=== PATIENT | female | born 1995 | race Caucasian/White ===

== ENCOUNTER 2019-08-05 12:30 | Emergency (ER) | payer BC, MEDICAID, OTHER ==
[2019-08-05] MEDS ORDERED: Acetaminophen/HYDROcodone 325-5 MG Tab PO ONE (13:59)
--- NOTE | 2019-08-05 14:01 | EDM.PDOC ---
ED HPI GENERAL MEDICAL PROBLEM - General Chief Complaint: Lower Extremity Injury/Pain Stated Complaint: [facility] Time Seen by Provider: 08/05/19 12:40 Source of Information: Reports: Patient, RN Notes Reviewed - History of Present Illness INITIAL COMMENTS - FREE TEXT/NARRATIVE: lady comes in with left knee pain. she slipped on ice a short time ago and states her left knee twisted causing her to fall. She states she felt a pop. She is having pain of the entire knee but more severe medial aspect. She is unable to bear weight. There is severe pain with motion. She denies other pain or injury from the fall. Left Knee Pain Score (Numeric/FACES): 10 - Related Data Allergies Allergy/AdvReac Type Severity Reaction Status Date / Time amoxicillin [From Augmentin] Allergy Hives Verified 08/05/19 12:36 clavulanic acid Allergy Hives Verified 08/05/19 12:36 [From Augmentin] cedex Allergy Cannot Uncoded 08/05/19 12:36 Remember Home Meds: Home Meds Acetaminophen/HYDROcodone [Hampton 325-5 MG] 1 tab PO Q6H PRN #10 tablet 08/05/19 [Rx] Past Medical History - Past Surgical History HEENT Surgical History: Reports: Oral Surgery, Tonsillectomy Social & Family History - Tobacco Use Smoking Status *Q: Never Smoker - Caffeine Use Caffeine Use: Reports: None - Recreational Drug Use Recreational Drug Use: No Review of Systems - Review of Systems Review Of Systems: See Below Constitutional: Reports: No Symptoms Mouth/Throat: Reports: No Symptoms Respiratory: Denies: Shortness of Breath Cardiovascular: Denies: Chest Pain GI/Abdominal: Denies: Abdominal Pain, Nausea, Vomiting Musculoskeletal: Reports: Joint Pain Skin: Reports: No Symptoms Neurological: Reports: No Symptoms ED EXAM, GENERAL - Physical Exam Exam: See Below General Appearance: Alert, Moderate Distress Ears: Normal External Exam Nose: Normal Inspection Throat/Mouth: Normal Inspection Head: Atraumatic Neck: Supple, Non-Tender Respiratory/Chest: No Respiratory Distress Extremities: Other (there is tenderness of the left knee medial aspect primarily and to a lesser extent anteriorly. Swelling visible. No abrasion visible. No joint effusion. Joint is stable. Severe pain with motion) Neurological: No Motor/Sensory Deficits Course - Vital Signs Last Recorded V/S: Last Vital Signs Temp 98.4 F 08/05/19 12:37 Pulse 87 08/05/19 12:37 Resp 13 08/05/19 12:37 BP 160/94 H 08/05/19 12:37 Pulse Ox 100 08/05/19 12:37 - Orders/Labs/Meds Orders: Active Orders 24 hr Category Date Time Status Knee 3V Lt [CR] Stat Exams 08/05/19 12:37 Taken Meds: Medications Discontinued Medications Generic Name Dose Route Start Last Admin Trade Name Freq PRN Reason Stop Dose Admin Hydrocodone Bitart/Acetaminophen 1 tab 08/05/19 13:59 08/05/19 14:14 Hampton 325-5 Mg PO 08/05/19 14:00 1 tab ONETIME ONE Administration - Re-Assessments/Exams Free Text/Narrative Re-Assessment/Exam: 08/05/19 14:00 no fracture 08/05/19 14:02. no fracture, no visible effusion on exam, severe pain with motion. Has a large leg, knee immobilizer is going to be difficult for her. Philip wrap that she has crutches at home, discharge instructions as documented Departure - Departure Time of Disposition: 14:02 Disposition: Home, Self-Care 01 Condition: Fair Clinical Impression: Fall, Knee sprain - Discharge Information Prescriptions: Acetaminophen/HYDROcodone [Hampton 325-5 MG] 1 tab PO Q6H PRN #10 tablet PRN Reason: Pain Instructions: Knee Sprain, Adult, [id number] Forms: ED Department Discharge, ED Return to Work/School Form Additional Instructions: Philip wrap left knee, ice packs, restand elevation as much as possible. Delroy or [place] 3 times daily her pain and inflammation, he may take Tylenol in between doses for extra pain ref or hydrocodone if needed for severe pain. Do not take Tylenol and hydrocodone at the same time. Do not drive or work when taking hydrocodo. follow-up with [facility] early next week for recheck.Call for appointment. Sepsis Event Note - Evaluation Sepsis Screening Result: No Definite Risk - Focused Exam Vital Signs: Vital Signs Temp Pulse Resp BP Pulse Ox 08/05/19 12:37 98.4 F 87 13 160/94 H 100 Date Exam was Performed: 08/05/19 Time Exam was Performed: 14:35 - My Orders Last 24 Hours: My Active Orders 08/05/19 12:37 Knee 3V Lt [CR] Stat - Assessment/Plan Last 24 Hours: My Active Orders 08/05/19 12:37 Knee 3V Lt [CR] Stat
--- NOTE | 2019-08-06 08:07 | CR ---
Left knee: AP, lateral and sunrise patellar views of the left knee were obtained. Comparison: No previous knee exam. Medial and lateral joint compartments are maintained in height. Patellofemoral joint appears within normal limits. No fracture or other bony abnormality is identified. Small soft tissue calcification is seen within the lateral soft tissues most likely dystrophic and/or less likely a small foreign body. Impression: 1. Small soft tissue calcification within the lateral knee most likely incidental. 2. Left knee exam is otherwise unremarkable. Nothing acute is appreciated. Diagnostic code #2 This report was dictated in [place] Standard Time
== END 2019-08-05 14:15 | disposition home or self-care (01) ==
LOC: JD.ED 12:30
DX: S83.92XA Sprain of unspecified site of left knee, initial encounter (principal); Z88.0 Allergy status to penicillin; Z88.1 Allergy status to other antibiotic agents; Z88.8 Allergy status to other drugs, medicaments and biological substances; W00.0XXA Fall on same level due to ice and snow, initial encounter; X50.1XXA Overexertion from prolonged static or awkward postures, initial encounter; Y93.01 Activity, walking, marching and hiking; Y92.89 Other specified places as the place of occurrence of the external cause
CPT/HCPCS: 73562; 99283; A9270

== ENCOUNTER 2020-08-21 12:00 | Inpatient (IN) | payer MEDICAID ==
[2020-08-21] MEDS ORDERED: Misoprostol 25 MCG (1/4 of 100 MCG) Tab VAG PRN (12:26)
[2020-08-21] MEDS ORDERED: Acetaminophen 325 MG Tab PO STA (12:26)
[2020-08-21] MEDS ORDERED: Ondansetron 4 MG/2 ML SDV IVPUSH PRN ×2 (12:26→20:58)
[2020-08-21] MEDS ORDERED: Sodium Chloride 0.9% 10 ML Syringe FLUSH PRN ×2 (12:26→23:02)
[2020-08-21] MEDS ORDERED: Nalbuphine 10 MG/1 ML Vial IVPUSH PRN (12:26)
[2020-08-21] MEDS ORDERED: Oxytocin/Lactated Ringers 10 UNIT/1,000 ML BAG IV SCH ×2 (12:30)
--- NOTE | 2020-08-21 12:30 | PCM.LDHP ---
L&D History of Present Illness - General Date of Service: 08/21/20 Admit Problem/Dx: Patient Status Order with Admit Dx/Problem 08/21/20 12:26 Patient Status [ADT] Routine Admission Diagnosis/Problem Admission Diagnosis/Problem High risk Source of Information: Patient History Limitations: Reports: No Limitations - History of Present Illness Introduction:: Patient is a 25 y/o at 38 0/7 wks who was feeling unwell today and so had her Mom check her BP at her mom's place of work and found to have severe pressure. She called in with this information. Was asked to present for evaluation. Had a mild headache this AM treated with 500 mg of Tylenol. Has had improvement, but still slightly present. No vision changes. No RUQ pain. 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 (Approximate): Endocrine/Metabolic History: Reports: Obesity/BMI 30+ - Past Surgical History HEENT Surgical History: Reports: Oral Surgery, Tonsillectomy Social & Family History - Tobacco Use Tobacco Use Status *Q: Never Tobacco User - Caffeine Use Caffeine Use: Reports: None - Alcohol Use Alcohol Use History: No - Recreational Drug Use Recreational Drug Use: No H&P Review of Systems - Review of Systems: Review Of Systems: See Below General: Reports: No Symptoms Pulmonary: Reports: No Symptoms Cardiovascular: Reports: No Symptoms Gastrointestinal: Reports: No Symptoms Genitourinary: Reports: No Symptoms Musculoskeletal: Reports: No Symptoms Neurological: Reports: Headache (improving) L&D Exam - Exam Exam: See Below - OB Specific Contraction Intensity: Irritability Movement: Active Heart Tones: Present Heart Tones per Min: 150 Heart Rate (FHR) Variability: Moderate (6-25 bmp) Presentation: Vertex - Cadet Score Cadet Score Cervix Position: Posterior Cadet Score Consistency: Medium Cadet Score Effacement: 0-30% Cadet Score Dilation: Closed Cadet Score 's Station: -3 Cadet Score Total: 1 - Exam General: Alert, Oriented, Cooperative Lungs: Clear to Auscultation, Normal Respiratory Effort Cardiovascular: Regular Rate, Regular Rhythm GI/Abdominal Exam: Soft, Non-Tender Genitourinary: Normal external exam Extremities: Pedal Edema Skin: Warm, Dry, Intact - Patient Data Result Diagrams: 08/21/20 12:28 08/21/20 12:28 - Problem List (1) Preeclampsia SNOMED Code(s): 790331817 ICD Code: O14.90 - UNSPECIFIED PRE-ECLAMPSIA, UNSPECIFIED TRIMESTER Status: Acute Current Visit: Yes Qualifiers: Trimester: third trimester Qualified Code(s): O14.93 - Unspecified pre- eclampsia, third trimester (2) 38 weeks gestation of SNOMED Code(s): 83423455 ICD Code: Z3A.38 - 38 WEEKS GESTATION OF Status: Acute Current Visit: Yes (3) BMI 45.0-49.9, adult SNOMED Code(s): 202059130, 195198827 ICD Code: Z68.42 - BODY MASS INDEX [BMI] 45.0-49.9, ADULT Status: Acute Current Visit: Yes Problem List Initiated/Reviewed/Updated: Yes Orders Last 24hrs: Active Orders 24 hr Category Date Time Status Patient Status [ADT] Routine ADT 08/21/20 12:26 Ordered Communication Order [RC] ASDIRECTED Care 08/21/20 12:26 Ordered Communication Order [RC] ASDIRECTED Care 08/21/20 12:26 Ordered Communication Order [RC] ASDIRECTED Care 08/21/20 12:26 Ordered Communication Order [RC] ASDIRECTED Care 08/21/20 12:26 Ordered Non Stress Test [RC] PER UNIT ROUTINE Care 08/21/20 12:26 Ordered Notify Provider [RC] ASDIRECTED Care 08/21/20 12:26 Ordered Notify Provider [RC] PRN Care 08/21/20 12:26 Ordered Peripheral IV Care [RC] . DIRECTED Care 08/21/20 12:27 Ordered Up ad Delfina [RC] ASDIRECTED Care 08/21/20 12:27 Ordered Vaginal Exam [RC] ASDIRECTED Care 08/21/20 12:26 Ordered Vital Signs [RC] ASDIRECTED Care 08/21/20 12:26 Ordered Regular Diet [DIET] Diet 08/21/20 Lunch Ordered ALANINE AMINOTRANSFERASE,ALT [CHEM] Stat Lab 08/21/20 12:02 Ordered ASPARTATE AMNIOTRANSFERASE,AST [CHEM] Stat Lab 08/21/20 12:02 Ordered CBC W/O DIFF,HEMOGRAM [HEME] Stat Lab 08/21/20 12:02 Ordered CORONAVIRUS COVID-19 MAN [MOLEC] Stat Lab 08/21/20 12:29 Ordered CREATININE W/GFR [CHEM] Stat Lab 08/21/20 12:02 Ordered PROTEIN/CREATININE RATIO,URINE [URCHEM] Routine Lab 08/21/20 12:03 Ordered RPR (SYPHILIS SERO) W/ RFLX [REF] Stat Lab 08/21/20 12:02 Ordered TYPE AND SCREEN [BBK] Routine Lab 08/21/20 12:02 Ordered Acetaminophen [TylenoL] Med 08/21/20 12:26 Stat 975 mg PO NOW STA Lactated Ringers [Ringers, Lactated] 1,000 ml Med 08/21/20 12:30 Ordered IV ASDIRECTED Nalbuphine [Nubain] Med 08/21/20 12:26 Ordered 10 mg IVPUSH Q2H PRN Ondansetron [Zofran] Med 08/21/20 12:26 Ordered 4 mg IVPUSH Q4H PRN Oxytocin/Lactated Ringers [Pitocin in LR 10 Units/1,000 Med 08/21/20 12:30 Ordered ML] 10 unit in 1,000 ml IV .CONTINUOUS Oxytocin/Lactated Ringers [Pitocin in LR 10 Units/1,000 Med 08/21/20 12:30 Ordered ML] 10 unit in 1,000 ml IV TITRATE Sodium Chloride 0.9% [Saline Flush] Med 08/21/20 12:26 Ordered 10 ml FLUSH ASDIRECTED PRN miSOPROStoL [Cytotec] Med 08/21/20 12:26 Ordered 25 mcg VAG Q4H PRN Electronic Heart Tones Internal [WOMSER] Per Unit Oth 08/21/20 12:26 Ordered Routine Medication Administration Instruction [OM.PC] Oth 08/21/20 12:30 Ordered ASDIRECTED Peripheral IV Insertion Adult [OM.PC] Routine Oth 08/21/20 12:26 Ordered Resuscitation Status Routine Resus Stat 08/21/20 12:26 Ordered Medication Orders Acetaminophen (Tylenol) 975 mg PO NOW STA Stop: 08/21/20 12:27 Lactated Ringer's (Ringers, Lactated) 1,000 mls @ 40 mls/hr IV ASDIRECTED MARCELA Oxytocin/Lactated Ringer's (Pitocin In Lr 10 Units/1,000 Ml) 10 unit in 1,000 mls @ 12 mls/hr IV TITRATE MARCELA; Protocol Oxytocin/Lactated Ringer's (Pitocin In Lr 10 Units/1,000 Ml) 10 unit in 1,000 mls @ 500 mls/hr IV .CONTINUOUS MARCELA Misoprostol (Cytotec) 25 mcg VAG Q4H PRN PRN Reason: cervical ripening Nalbuphine HCl (Nubain) 10 mg IVPUSH Q2H PRN PRN Reason: Pain Ondansetron HCl (Zofran) 4 mg IVPUSH Q4H PRN PRN Reason: Nausea/Vomiting Sodium Chloride (Saline Flush) 10 ml FLUSH ASDIRECTED PRN PRN Reason: Keep Vein Open Assessment/Plan Comment:: BP's very upper limit of normal range. Lab done and WNL. Will treat headache. As of yet does not meed criteria for severe disease, but discussed may need management with anti-hypertensives and magnesium. She understood. Discussed moving forward with delivery. Cytotec placed. GBS negative, no need for antibiotics. Pain management per patient preference. Continue to monitor closely
[2020-08-21] MEDS: Lactated Ringers 1,000 ML IV SCH (17:03)
--- NOTE | 2020-08-21 17:36 | PCM.PNLD ---
Labor Progress Note - VS & Meds Vital Signs: Last Vital Signs Temp 35.9 C L 08/21/20 12:12 Pulse 100 08/21/20 12:12 Resp 16 08/21/20 12:12 BP 145/102 H 08/21/20 12:12 Pulse Ox 98 08/21/20 12:12 Active Medications: Current Medications Lactated Ringer's (Ringers, Lactated) 1,000 mls @ 40 mls/hr IV ASDIRECTED MARCELA Last Admin: 08/21/20 17:03 Dose: 40 mls/hr Documented by: Oxytocin/Lactated Ringer's (Pitocin In Lr 10 Units/1,000 Ml) 10 unit in 1,000 mls @ 12 mls/hr IV TITRATE MARCELA; Protocol Last Admin: 08/21/20 17:03 Dose: 2 munits/min, 12 mls/hr Documented by: Oxytocin/Lactated Ringer's (Pitocin In Lr 10 Units/1,000 Ml) 10 unit in 1,000 mls @ 500 mls/hr IV .CONTINUOUS MARCELA Misoprostol (Cytotec) 25 mcg VAG Q4H PRN PRN Reason: cervical ripening Last Admin: 08/21/20 12:48 Dose: 25 mcg Documented by: Nalbuphine HCl (Nubain) 10 mg IVPUSH Q2H PRN PRN Reason: Pain Ondansetron HCl (Zofran) 4 mg IVPUSH Q4H PRN PRN Reason: Nausea/Vomiting Sodium Chloride (Saline Flush) 10 ml FLUSH ASDIRECTED PRN PRN Reason: Keep Vein Open Discontinued Medications Acetaminophen (Tylenol) 975 mg PO NOW STA Stop: 08/21/20 12:27 Last Admin: 08/21/20 12:57 Dose: 975 mg Documented by: - Uterine Contractions Uterine Monitoring Mode: External [place] Contraction Intensity: Mild Uterine Resting Tone: Soft - Monitoring Monitor Mode: External Ultrasound Heart Rate (FHR) Baseline: 145 Heart Rate (FHR) Variability: Moderate (6-25 bmp) Accelerations: Present, 15x15 Decelerations: Prolonged (>2x10 min) - Vaginal Exam Dilation (cm): 1 Effacement (Percent): 50 Station: -4 Cervical Position: Midposition - Labor Progress (Free Text) Labor Progress: Patient has been having mild cramping with first Cytotec placed around 1230. Around 1530 had a prolonged deceleration into the 80's lasting 2 minutes. Reviewed with family would prefer not to place additional cytotec. Recommend transition to demarco bulb and pitocin. They agree. Bulb placed. Patient's BP's mostly recently normal range, but have mostly been upper limit mild range. Con tinue to monitor closely
[2020-08-21] MEDS ORDERED: Citric Acid/Sodium Citrate Solution 30 ML Cup PO ONE (19:29)
[2020-08-21] MEDS ORDERED: ceFAZolin 1 GM in Premix Bag 1 BAG IV ONE (19:29)
[2020-08-21] MEDS ORDERED: Metoclopramide 10 MG/2 ML SDV IVPUSH ONE (19:29)
[2020-08-21] MEDS ORDERED: ceFAZolin 2 GM in Premix Bag 1 BAG IV ONE (19:29)
--- NOTE | 2020-08-21 19:32 | PCM.SN.2 ---
- Free Text/Narrative Note: 191 Patient on 4 of pitocin and with recurrent late decelerations. Long bulb still in. Patient very comfortable. Reviewed findings and implications for induction. Do not think baby will tolerate on-going induction. Would recommend moving forward with delivery via . Reviewed risks and benefits of pro cedure. She agrees. OR crew and peds notified. Yareli Lutz MD
--- NOTE | 2020-08-21 19:33 | PCM.OPNOTE ---
- General Post-Op/Procedure Note Date of Surgery/Procedure: 08/21/20 Operative Procedure(s): Primary low transverse - vacuum assisted Findings: Baby Boy in a vertex presentation. Weight of 3510 grams. APGARS 7 & 9. Grossly normal appearance of the uterus, fallopian tubes, and ovaries. Pre Op Diagnosis: 38 0/7 wks. Preeclampsia. Maternal BMI 49.5. 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 Speed and safety of procedure Pathology: Cord blood collected. Placenta discarded Fluid Replacement, Intraop: 2,000 Output, Urine Amount: 100 EBL in mLs: 1,000 Complications: None Condition: Good Free Text/Narrative:: The risks, benefits, indications, potential complications, and alternatives were explained to the patient and informed consent obtained. After induction of anesthesia, the patient was placed in a supine position and then draped and prepped in the usual sterile manner. A Pfannenstiel incision was made and carried down through the subcutaneous tissue to the fascia. Fascial incision was made and extended transversely. The fascia was from the underlying rectus tissue superiorly and inferiorly. The peritoneum was identified and entered. Peritoneal incision was extended longitudinally. The utero-vesical peritoneal reflection was incised transversely and the bladder flap was bluntly freed from the lower uterine segment. A low transverse uterine incision was made sharply with a scalpel and extended bluntly in a cephalocaudad direction. A baby boy was delivered from vertex presentation with vacuum assistance given some difficulty applying adequate fundal pressure. After the umbilical cord was clamped and cut cord blood was obtained for evaluation. The placenta was removed intact and appeared normal. The uterus was exteriorized and cleared of clots. The uterine outline, tubes and ovaries appeared normal. The uterine incision was closed with running locked sutures of 0 Vicryl. Hemostasis was obtained with an imbricating layer of 0 Vicryl and several interrupted sutures of 0 Vicryl placed in figure of eight fashion. The uterus was then placed back into the abdomen. The infracolic gutters were cleared of blood clots. The fascia was then reapproximated with running sutures of 0 PDS. The subcutaneous tissue was irrigated with sterile warm normal saline, hemostasis obtained with cautery. This layer was closed with a running 0 Vicryl. The skin was reapproximated with running Subcuticular 4-0 Monocryl suture and sealed with Dermabond. Instrument, sponge, and needle counts were correct prior the abdominal closure and at the conclusion of the case.
[2020-08-21] MEDS ORDERED: Ketorolac 30 MG/ML SDV ONE (19:40)
[2020-08-21] MEDS ORDERED: ceFAZolin 1 GM Vial ONE ×2 (19:40→20:19)
[2020-08-21] MEDS ORDERED: Oxytocin 10 Units/1 ML SDV ONE (19:40)
[2020-08-21] MEDS ORDERED: Lactated Ringers 2,000 ML ONE (19:40)
[2020-08-21] MEDS ORDERED: Morphine PF 10 MG/10 ML SDV ONE (19:40)
[2020-08-21] MEDS ORDERED: Ondansetron 4 MG/2 ML SDV ONE (19:40)
[2020-08-21] MEDS ORDERED: ePHEDrine 50 MG/ML SDV ONE (20:22)
[2020-08-21] MEDS ORDERED: diphenhydrAMINE 50 MG/ML SDV IVPUSH PRN ×2 (20:58→23:02)
[2020-08-21] MEDS ORDERED: fentaNYL 100 MCG/2 ML SDV IVPUSH PRN (20:58)
--- NOTE | 2020-08-21 21:02 | PCM.PREANE ---
Preanesthetic Assessment - Procedure Proposed Procedure: Section - Anesthesia/Transfusion/Family Hx Anesthesia History: Prior Anesthesia Without Reaction Family History of Anesthesia Reaction: No Transfusion History: No Prior Transfusion(s) - Review of Systems General: No Symptoms Pulmonary: No Symptoms Cardiovascular: No Symptoms Gastrointestinal: Other (GERD) Neurological: No Symptoms Other: Reports: None (Morbid Obesity, BMI 49.5), Depression - Physical Assessment NPO Status Date: 08/21/20 NPO Status Time: 18:00 (Water) Vital Signs: Last Vital Signs Temp 35.9 C L 08/21/20 12:12 Pulse 100 08/21/20 12:12 Resp 16 08/21/20 12:12 BP 145/102 H 08/21/20 12:12 Pulse Ox 98 08/21/20 12:12 Height: 1.68 m Weight: 139.207 kg ASA Class: 3 Mental Status: Alert & Oriented x3 Airway Class: Mallampati = 3 Dentition: Reports: Normal Dentition, Caries Thyro-Mental Finger Breadths: 3 Mouth Opening Finger Breadths: 3 ROM/Head Extension: Full Lungs: Clear to Auscultation, Normal Respiratory Effort Cardiovascular: Regular Rate, Regular Rhythm - Lab Values: Laboratory Last Values WBC 10.09 K/mm3 (3.98-10.04) H 08/21/20 12:28 RBC 4.90 M/mm3 (3.98-5.22) 08/21/20 12:28 Hgb 13.4 gm/dl (11.2-15.7) 08/21/20 12:28 Hct 39.5 % (34.1-44.9) 08/21/20 12:28 MCV 80.6 fl (79.4-94.8) 08/21/20 12:28 MCH 27.3 pg (25.6-32.2) 08/21/20 12:28 MCHC 33.9 g/dl (32.2-35.5) 08/21/20 12:28 RDW Std Deviation 42.0 fL (36.4-46.3) 08/21/20 12:28 Plt Count 360 K/mm3 (182-369) 08/21/20 12:28 MPV 9.9 fl (9.4-12.3) 08/21/20 12:28 Creatinine 0.7 mg/dL (0.55-1.02) 08/21/20 12:28 Est Cr Clr Drug Dosing 116.01 mL/min 08/21/20 12:28 Estimated GFR (MDRD) > 60 mL/min (>60) 08/21/20 12:28 AST 12 U/L (15-37) L 08/21/20 12:28 ALT 17 U/L (14-59) 08/21/20 12:28 Ur Random Creatinine 113.1 mg/dL (30.0-125.0) 08/21/20 14:30 U Random Total Protein 27.5 mg/dL (0.0-11.8) H 08/21/20 14:30 Protein/Creatinin Ratio 243.1 mg/g (0-149) H 08/21/20 14:30 RPR Non-reactive (NONREACTIVE) 08/21/20 12:28 Blood Type A POSITIVE 08/21/20 12:28 Gel Antibody Screen Negative 08/21/20 12:28 - Allergies Allergies/Adverse Reactions: Allergies Allergy/AdvReac Type Severity Reaction Status Date / Time amoxicillin [From Augmentin] Allergy Hives Verified 08/21/20 14:45 melendrez Allergy Anaphylactic Verified 08/21/20 14:45 Shock clavulanic acid Allergy Hives Verified 08/21/20 14:45 [From Augmentin] cedex Allergy Cannot Uncoded 08/05/19 12:36 Remember - Anesthesia Plan Pre-Op Medication Ordered: Antacids - Acknowledgements Anesthesia Type Planned: Spinal Pt an Appropriate Candidate for the Planned Anesthesia: Yes Alternatives and Risks of Anesthesia Discussed w Pt/Guardian: Yes Pt/Guardian Understands and Agrees with Anesthesia Plan: Yes PreAnesthesia Questionnaire HEENT History: Reports: Other (See Below) Other HEENT History: Chronic ear infections 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: Psychiatric History: Reports: Anxiety Endocrine/Metabolic History: Reports: Obesity/BMI 30+ - Infectious Disease History Infectious Disease History: Reports: Other (See Below) Other Infectious Disease History: Covid in March - Past Surgical History HEENT Surgical History: Reports: Oral Surgery, Tonsillectomy - SUBSTANCE USE Tobacco Use Status *Q: Never Tobacco User Second Hand Smoke Exposure: No Recreational Drug Use History: No - HOME MEDS Home Medications: Home Meds Vits #93/Iron Fum/FA [ Formula Tablet] 1 tab PO DAILY 08/03/20 [History] Sertraline [Zoloft] 50 mg PO DAILY 08/03/20 [History] Aspirin 81 mg PO DAILY 08/21/20 [History] - CURRENT (IN HOUSE) MEDS Current Meds: Current Medications Lactated Ringer's (Ringers, Lactated) 1,000 mls @ 40 mls/hr IV ASDIRECTED MARCELA Last Admin: 08/21/20 17:03 Dose: 40 mls/hr Documented by: Oxytocin/Lactated Ringer's (Pitocin In Lr 10 Units/1,000 Ml) 10 unit in 1,000 mls @ 12 mls/hr IV TITRATE MARCELA; Protocol Last Titration: 08/21/20 19:42 Dose: 0 munits/min, 0 mls/hr Documented by: Oxytocin/Lactated Ringer's (Pitocin In Lr 10 Units/1,000 Ml) 10 unit in 1,000 mls @ 500 mls/hr IV .CONTINUOUS MARCELA Nalbuphine HCl (Nubain) 10 mg IVPUSH Q2H PRN PRN Reason: Pain Ondansetron HCl (Zofran) 4 mg IVPUSH Q4H PRN PRN Reason: Nausea/Vomiting Sodium Chloride (Saline Flush) 10 ml FLUSH ASDIRECTED PRN PRN Reason: Keep Vein Open Discontinued Medications Acetaminophen (Tylenol) 975 mg PO NOW STA Stop: 08/21/20 12:27 Last Admin: 08/21/20 12:57 Dose: 975 mg Documented by: Cefazolin Sodium (Ancef) Confirm Administered Dose 2 gm .ROUTE .STK-MED ONE Stop: 08/21/20 19:41 Cefazolin Sodium (Ancef) Confirm Administered Dose 1 gm .ROUTE .STK-MED ONE Stop: 08/21/20 20:20 Citric Acid/Sodium Citrate (Bicitra Solution) 30 ml PO ONETIME ONE Stop: 08/21/20 19:30 Last Admin: 08/21/20 19:48 Dose: 30 ml Documented by: Ephedrine Sulfate (Ephedrine Sulfate) Confirm Administered Dose 50 mg .ROUTE .STK-MED ONE Stop: 08/21/20 20:23 Cefazolin Sodium/Dextrose 2 gm (/ Premix) 50 mls @ 100 mls/hr IV ONETIME ONE Stop: 08/21/20 19:58 Cefazolin Sodium/Dextrose 1 gm (/ Premix) 50 mls @ 100 mls/hr IV ONETIME ONE Stop: 08/21/20 19:58 Cefazolin Sodium/Dextrose (Ancef 2 Gm/50 Ml) Confirm Administered Dose 50 mls @ as directed .ROUTE .STK-MED ONE Stop: 08/21/20 19:29 Cefazolin Sodium/Dextrose (Ancef 1 Gm/50 Ml) Confirm Administered Dose 50 mls @ as directed .ROUTE .STK-MED ONE Stop: 08/21/20 19:29 Lactated Ringer's (Ringers, Lactated) Confirm Administered Dose 2,000 mls @ as directed .ROUTE .STK-MED ONE Stop: 08/21/20 19:41 Ketorolac Tromethamine (Toradol) Confirm Administered Dose 30 mg .ROUTE .STK-MED ONE Stop: 08/21/20 19:41 Metoclopramide HCl (Reglan) 10 mg IVPUSH ONETIME ONE Stop: 08/21/20 19:30 Last Admin: 08/21/20 19:45 Dose: 10 mg Documented by: Misoprostol (Cytotec) 25 mcg VAG Q4H PRN PRN Reason: cervical ripening Last Admin: 08/21/20 12:48 Dose: 25 mcg Documented by: Morphine Sulfate (Duramorph Pf) Confirm Administered Dose 10 mg .ROUTE .STK-MED ONE Stop: 08/21/20 19:41 Ondansetron HCl (Zofran) Confirm Administered Dose 4 mg .ROUTE .STK-MED ONE Stop: 08/21/20 19:41 Oxytocin (Pitocin) Confirm Administered Dose 20 unit .ROUTE .STK-MED ONE Stop: 08/21/20 19:41
--- NOTE | 2020-08-21 21:21 | PCM.POSTAN ---
POST ANESTHESIA ASSESSMENT - MENTAL STATUS Mental Status: Alert, Oriented - VITAL SIGNS Vital Signs: Last Vital Signs Temp 36.1 C 08/21/20 21:14 Pulse 75 08/21/20 21:14 Resp 20 08/21/20 21:14 BP 125/63 08/21/20 21:14 Pulse Ox 95 08/21/20 21:14 - RESPIRATORY Respiratory Status: Respiratory Rate WNL, Airway Patent, O2 Saturation Stable, Supplemental Oxygen - CARDIOVASCULAR CV Status: Pulse Rate WNL, Blood Pressure Stable - GASTROINTESTINAL GI Status: No Symptoms - PAIN Pain Score: 0 - POST OP HYDRATION Hydration Status: Adequate & Stable
[2020-08-21] MEDS ORDERED: ePHEDrine 50 MG/ML SDV IVPUSH PRN (23:02)
[2020-08-21] MEDS ORDERED: Docusate Sodium 100 MG Cap PO PRN (23:02)
[2020-08-21] MEDS ORDERED: Dextrose 5%-Lactated Ringers 1,000 ML IV SCH (23:02)
[2020-08-22] MEDS: Ketorolac 30 MG/ML SDV IVPUSH SCH ×3 (02:43→15:24)
[2020-08-22] MEDS: Acetaminophen/oxyCODONE 325-5 MG Tab PO PRN ×5 (04:45→23:24)
[2020-08-22] MEDS ORDERED: Lactated Ringers 500 ML IV ONE (05:29)
[2020-08-22] MEDS: Lactated Ringers 1,000 ML IV SCH (06:00)
--- NOTE | 2020-08-22 07:01 | PCM.PNPP ---
- General Info Date of Service: 08/22/20 Functional Status: Reports: Pain Controlled, Tolerating Diet, Ambulating - Review of Systems General: Reports: No Symptoms Pulmonary: Reports: No Symptoms Cardiovascular: Reports: No Symptoms Gastrointestinal: Reports: Abdominal Pain (at incision site - managed with medications ) Genitourinary: Reports: No Symptoms Neurological: Reports: No Symptoms - Patient Data Vital Signs - Most Recent: Last Vital Signs Temp 36.7 C 08/22/20 06:09 Pulse 77 08/22/20 06:09 Resp 16 08/22/20 06:00 BP 128/62 08/22/20 06:01 Pulse Ox 97 08/22/20 06:09 Weight - Most Recent: 139.207 kg I&O - Last 24 Hours: Intake & Output 08/21/20 08/22/20 08/22/20 22:59 06:59 14:59 Intake Total 2300 Output Total 335 280 Balance 1965 -280 Lab Results - Last 24 Hours: Laboratory Results - last 24 hr 08/21/20 08/21/20 08/21/20 Range/Units 12:28 12:28 12:28 WBC 10.09 H (3.98-10.04) K/mm3 RBC 4.90 (3.98-5.22) M/mm3 Hgb 13.4 (11.2-15.7) gm/dl Hct 39.5 (34.1-44.9) % MCV 80.6 (79.4-94.8) fl MCH 27.3 (25.6-32.2) pg MCHC 33.9 (32.2-35.5) g/dl RDW Std Deviation 42.0 (36.4-46.3) fL Plt Count 360 (182-369) K/mm3 MPV 9.9 (9.4-12.3) fl Neut % (Auto) (34.0-71.1) % Lymph % (Auto) (19.3-51.7) % [place] % (Auto) (4.7-12.5) % Eos % (Auto) (0.7-5.8) Baso % (Auto) (0.1-1.2) % Neut # (Auto) (1.56-6.13) K/mm3 Lymph # (Auto) (1.18-3.74) K/mm3 [place] # (Auto) (0.24-0.36) K/mm3 Eos # (Auto) (0.04-0.36) K/mm3 Baso # (Auto) (0.01-0.08) K/mm3 Sodium (136-145) mEq/L Potassium (3.5-5.1) mEq/L Chloride (98-107) mEq/L Carbon Dioxide (21-32) mEq/L Anion Gap (5-15) BUN (7-18) mg/dL Creatinine 0.7 (0.55-1.02) mg/dL Est Cr Clr Drug Dosing 116.01 mL/min Estimated GFR (MDRD) > 60 (>60) mL/min BUN/Creatinine Ratio (14-18) Glucose (74-106) mg/dL Calcium (8.5-10.1) mg/dL AST 12 L (15-37) U/L ALT 17 (14-59) U/L Ur Random Creatinine (30.0-125.0) mg/dL U Random Total Protein (0.0-11.8) mg/dL Protein/Creatinin Ratio (0-149) mg/g RPR (NONREACTIVE) Blood Type A POSITIVE Gel Antibody Screen Negative 08/21/20 08/21/20 08/22/20 Range/Units 12:28 14:30 05:42 WBC 11.94 H (3.98-10.04) K/mm3 RBC 3.98 (3.98-5.22) M/mm3 Hgb 11.0 L D (11.2-15.7) gm/dl Hct 32.7 L (34.1-44.9) % MCV 82.2 (79.4-94.8) fl MCH 27.6 (25.6-32.2) pg MCHC 33.6 (32.2-35.5) g/dl RDW Std Deviation 41.9 (36.4-46.3) fL Plt Count 236 D (182-369) K/mm3 MPV 10.0 (9.4-12.3) fl Neut % (Auto) 73.1 H (34.0-71.1) % Lymph % (Auto) 19.0 L (19.3-51.7) % Valencia % (Auto) 6.6 (4.7-12.5) % Eos % (Auto) 0.9 (0.7-5.8) Baso % (Auto) 0.1 (0.1-1.2) % Neut # (Auto) 8.73 H (1.56-6.13) K/mm3 Lymph # (Auto) 2.27 (1.18-3.74) K/mm3 [place] # (Auto) 0.79 H (0.24-0.36) K/mm3 Eos # (Auto) 0.11 (0.04-0.36) K/mm3 Baso # (Auto) 0.01 (0.01-0.08) K/mm3 Sodium (136-145) mEq/L Potassium (3.5-5.1) mEq/L Chloride (98-107) mEq/L Carbon Dioxide (21-32) mEq/L Anion Gap (5-15) BUN (7-18) mg/dL Creatinine (0.55-1.02) mg/dL Est Cr Clr Drug Dosing mL/min Estimated GFR (MDRD) (>60) mL/min BUN/Creatinine Ratio (14-18) Glucose (74-106) mg/dL Calcium (8.5-10.1) mg/dL AST (15-37) U/L ALT (14-59) U/L Ur Random Creatinine 113.1 (30.0-125.0) mg/dL U Random Total Protein 27.5 H (0.0-11.8) mg/dL Protein/Creatinin Ratio 243.1 H (0-149) mg/g RPR Non-reactive (NONREACTIVE) Blood Type Gel Antibody Screen 08/22/20 Range/Units 05:42 WBC (3.98-10.04) K/mm3 RBC (3.98-5.22) M/mm3 Hgb (11.2-15.7) gm/dl Hct (34.1-44.9) % MCV (79.4-94.8) fl MCH (25.6-32.2) pg MCHC (32.2-35.5) g/dl RDW Std Deviation (36.4-46.3) fL Plt Count (182-369) K/mm3 MPV (9.4-12.3) fl Neut % (Auto) (34.0-71.1) % Lymph % (Auto) (19.3-51.7) % [place] % (Auto) (4.7-12.5) % Eos % (Auto) (0.7-5.8) Baso % (Auto) (0.1-1.2) % Neut # (Auto) (1.56-6.13) K/mm3 Lymph # (Auto) (1.18-3.74) K/mm3 [place] # (Auto) (0.24-0.36) K/mm3 Eos # (Auto) (0.04-0.36) K/mm3 Baso # (Auto) (0.01-0.08) K/mm3 Sodium 138 (136-145) mEq/L Potassium 3.7 (3.5-5.1) mEq/L Chloride 105 (98-107) mEq/L Carbon Dioxide 22 (21-32) mEq/L Anion Gap 14.7 (5-15) BUN 13 (7-18) mg/dL Creatinine 0.8 (0.55-1.02) mg/dL Est Cr Clr Drug Dosing 101.51 mL/min Estimated GFR (MDRD) > 60 (>60) mL/min BUN/Creatinine Ratio 16.3 (14-18) Glucose 107 H (74-106) mg/dL Calcium 8.5 (8.5-10.1) mg/dL AST (15-37) U/L ALT (14-59) U/L Ur Random Creatinine (30.0-125.0) mg/dL U Random Total Protein (0.0-11.8) mg/dL Protein/Creatinin Ratio (0-149) mg/g RPR (NONREACTIVE) Blood Type Gel Antibody Screen Med Orders - Current: Current Medications Diphenhydramine HCl (Benadryl) 25 mg IVPUSH Q6H PRN PRN Reason: Pruritis Diphenhydramine HCl (Benadryl) 25 mg IVPUSH Q6H PRN PRN Reason: Itching or Nausea Docusate Sodium (Colace) 100 mg PO Q12H PRN PRN Reason: Constipation Ephedrine Sulfate (Ephedrine Sulfate) 5 mg IVPUSH SEECOMMENT PRN PRN Reason: Other Fentanyl (Sublimaze) 50 mcg IVPUSH Q5M PRN PRN Reason: Pain Ibuprofen (Motrin) 600 mg PO Q6H PRN PRN Reason: mild pain or fever Ketorolac Tromethamine (Toradol) 30 mg IVPUSH Q6H MARECLA Stop: 08/22/20 15:01 Last Admin: 08/22/20 02:43 Dose: 30 mg Documented by: Oxycodone/Acetaminophen (Percocet 325-5 Mg) 1 tab PO Q4H PRN PRN Reason: Pain (moderate 4-6) Oxycodone/Acetaminophen (Percocet 325-5 Mg) 2 tab PO Q4H PRN PRN Reason: Pain (severe 7-10) Last Admin: 08/22/20 04:45 Dose: 2 tab Documented by: Sodium Chloride (Saline Flush) 10 ml FLUSH ASDIRECTED PRN PRN Reason: Keep Vein Open Discontinued Medications Acetaminophen (Tylenol) 975 mg PO NOW STA Stop: 08/21/20 12:27 Last Admin: 08/21/20 12:57 Dose: 975 mg Documented by: Cefazolin Sodium (Ancef) Confirm Administered Dose 2 gm .ROUTE .STK-MED ONE Stop: 08/21/20 19:41 Cefazolin Sodium (Ancef) Confirm Administered Dose 1 gm .ROUTE .STK-MED ONE Stop: 08/21/20 20:20 Citric Acid/Sodium Citrate (Bicitra Solution) 30 ml PO ONETIME ONE Stop: 08/21/20 19:30 Last Admin: 08/21/20 19:48 Dose: 30 ml Documented by: Ephedrine Sulfate (Ephedrine Sulfate) Confirm Administered Dose 50 mg .ROUTE .STK-MED ONE Stop: 08/21/20 20:23 Lactated Ringer's (Ringers, Lactated) 1,000 mls @ 40 mls/hr IV ASDIRECTED MARCELA Last Admin: 08/22/20 06:00 Dose: 40 mls/hr Documented by: Oxytocin/Lactated Ringer's (Pitocin In Lr 10 Units/1,000 Ml) 10 unit in 1,000 mls @ 12 mls/hr IV TITRATE MARCELA; Protocol Last Titration: 08/21/20 19:42 Dose: 0 munits/min, 0 mls/hr Documented by: Oxytocin/Lactated Ringer's (Pitocin In Lr 10 Units/1,000 Ml) 10 unit in 1,000 mls @ 500 mls/hr IV .CONTINUOUS MARCELA Cefazolin Sodium/Dextrose 2 gm (/ Premix) 50 mls @ 100 mls/hr IV ONETIME ONE Stop: 08/21/20 19:58 Cefazolin Sodium/Dextrose 1 gm (/ Premix) 50 mls @ 100 mls/hr IV ONETIME ONE Stop: 08/21/20 19:58 Cefazolin Sodium/Dextrose (Ancef 2 Gm/50 Ml) Confirm Administered Dose 0 mls @ as directed .ROUTE .STK-MED ONE Stop: 08/21/20 19:29 Cefazolin Sodium/Dextrose (Ancef 1 Gm/50 Ml) Confirm Administered Dose 50 mls @ as directed .ROUTE .STK-MED ONE Stop: 08/21/20 19:29 Lactated Ringer's (Ringers, Lactated) Confirm Administered Dose 2,000 mls @ as directed .ROUTE .STK-MED ONE Stop: 08/21/20 19:41 Dextrose/Lactated Ringer's (Dextrose 5%-Lactated Ringers) 1,000 mls @ 125 mls/hr IV ASDIRECTED MARCELA Stop: 08/22/20 07:01 Last Admin: 08/22/20 02:00 Dose: 125 mls/hr Documented by: Lactated Ringer's (Ringers, Lactated) 500 mls @ 999 mls/hr IV .BOLUS ONE Stop: 08/22/20 05:59 Last Admin: 08/22/20 05:45 Dose: 999 mls/hr Documented by: Ketorolac Tromethamine (Toradol) Confirm Administered Dose 30 mg .ROUTE .STK-MED ONE Stop: 08/21/20 19:41 Metoclopramide HCl (Reglan) 10 mg IVPUSH ONETIME ONE Stop: 08/21/20 19:30 Last Admin: 08/21/20 19:45 Dose: 10 mg Documented by: Miscellaneous Medication (Phenylephrine 1 Mg/10 Ml-Ns) Confirm Administered Dose 1 mg .ROUTE .STK-MED ONE Stop: 08/21/20 21:05 Misoprostol (Cytotec) 25 mcg VAG Q4H PRN PRN Reason: cervical ripening Last Admin: 08/21/20 12:48 Dose: 25 mcg Documented by: Morphine Sulfate (Duramorph Pf) Confirm Administered Dose 10 mg .ROUTE .STK-MED ONE Stop: 08/21/20 19:41 Nalbuphine HCl (Nubain) 10 mg IVPUSH Q2H PRN PRN Reason: Pain Ondansetron HCl (Zofran) 4 mg IVPUSH Q4H PRN PRN Reason: Nausea/Vomiting Ondansetron HCl (Zofran) Confirm Administered Dose 4 mg .ROUTE .STK-MED ONE Stop: 08/21/20 19:41 Ondansetron HCl (Zofran) 4 mg IVPUSH ONETIME PRN PRN Reason: Nausea/Vomiting Stop: 08/22/20 05:00 Oxytocin (Pitocin) Confirm Administered Dose 20 unit .ROUTE .STK-MED ONE Stop: 08/21/20 19:41 Sodium Chloride (Saline Flush) 10 ml FLUSH ASDIRECTED PRN PRN Reason: Keep Vein Open - Interaction Disposition, : in Room with Family Infant Interaction: Holding Infant Infant Feeding: Attempted ; Nursed Fair/Poor, Bottle Fed Infant Support Person: Mother - Recovery Exam Fundal Tone: Firm Fundal Level: At Umbilicus Fundal Placement: Midline Lochia Amount: Small Lochia Color: Rubra/Red Perineum Description: Intact, Minimal Bruising/Swelling Episiotomy/Laceration: None Urinary Elimination: Indwelling Catheter - Exam General: Alert, Oriented, Cooperative Lungs: Clear to Auscultation, Normal Respiratory Effort Cardiovascular: Regular Rate, Regular Rhythm GI/Abdominal Exam: Soft, Tender (minimal, appropriate post op) Extremities: Pedal Edema Skin: Warm, Dry, Intact Wound/Incisions: Healing Well, No Drainage - Problem List & Annotations (1) Preeclampsia SNOMED Code(s): 701622475 Code(s): O14.90 - UNSPECIFIED PRE-ECLAMPSIA, UNSPECIFIED TRIMESTER Status: Acute Current Visit: Yes Qualifiers: Trimester: third trimester Qualified Code(s): O14.93 - Unspecified pre- eclampsia, third trimester (2) 38 weeks gestation of SNOMED Code(s): 68202448 Code(s): Z3A.38 - 38 WEEKS GESTATION OF Status: Acute Current Visit: Yes (3) BMI 45.0-49.9, adult SNOMED Code(s): 189955144, 235144854 Code(s): Z68.42 - BODY MASS INDEX [BMI] 45.0-49.9, ADULT Status: Acute Current Visit: Yes (4) Non-reassuring electronic monitoring tracing SNOMED Code(s): 764353524 Code(s): O36.8390 - MATERN CARE FOR ABNLT FETL HRT RATE OR RHYM, UNSP TRI, UNSP Status: Acute Current Visit: Yes (5) S/P primary low transverse SNOMED Code(s): 958130693, 89947408, 498301927, 031771793, 704975769 Code(s): Z98.891 - HISTORY OF UTERINE SCAR FROM PREVIOUS SURGERY Status: Acute Current Visit: Yes - Problem List Review Problem List Initiated/Reviewed/Updated: Yes - My Orders Last 24 Hours: My Active Orders 08/21/20 12:26 Resuscitation Status Routine 08/21/20 Dinner Regular Diet [DIET] 08/21/20 23:02 Acetaminophen/oxyCODONE [Percocet 325-5 MG] 1 tab PO Q4H PRN Acetaminophen/oxyCODONE [Percocet 325-5 MG] 2 tab PO Q4H PRN Docusate Sodium [Colace] 100 mg PO Q12H PRN Sodium Chloride 0.9% [Saline Flush] 10 ml FLUSH ASDIRECTED PRN diphenhydrAMINE [Benadryl] 25 mg IVPUSH Q6H PRN ePHEDrine [ePHEDrine sulfate] 5 mg IVPUSH SEECOMMENT PRN 08/21/20 23:02 Activity as Tolerated [RC] .Routine Antiembolic Devices [RC] PER UNIT ROUTINE Communication Order [RC] PER UNIT ROUTINE Intake and Output [RC] Q4HR May Shower [RC] PER UNIT ROUTINE Notify Provider Intake and Out [RC] ASDIRECTED RT Incentive Spirometry [RC] Q2HWA Vital Signs [RC] Q2HR Assess Lochia [WOMSER] Per Unit Routine Assess Uterine Involution [WOMSER] Per Unit Routine Breast Pump [WOMSER] Per Unit Routine Peripheral IV Discontinue [OM.PC] Routine Saline Lock Insert [OM.PC] Routine Sequential Compression Device [OM.PC] Per Unit Routine 08/22/20 03:00 Ketorolac [Toradol] 30 mg IVPUSH Q6H 08/22/20 21:00 Ibuprofen [Motrin] 600 mg PO Q6H PRN 08/22/20 21:17 Urinary Catheter Removal [RC] Per Unit Routine - Assessment Assessment:: POD#1 - Plan Plan:: * Routine cares * Breast feeding with some supplementation currently * BP's normal to mid-mild range overnight. Continue to monitor closely. No need for antihypertensives at this time. Will need BP check within 1 week from delivery * Low UOP overnight. CBC and BMP appropriate. Given 500 cc bolus with increase in output. Will continue to monitor closely * Discharge home in 2 days
--- NOTE | 2020-08-22 11:37 | PCM48HPAN ---
Post Anesthesia Note - EVALUATION WITHIN 48HRS OF ANESTHETIC Vital Signs in Normal Range: Yes Patient Participated in Evaluation: Yes Respiratory Function Stable: Yes Airway Patent: Yes Cardiovascular Function Stable: Yes Hydration Status Stable: Yes Pain Control Satisfactory: Yes Nausea and Vomiting Control Satisfactory: Yes Mental Status Recovered: Yes Vital Signs: Last Vital Signs Temp 36.2 C 08/22/20 09:00 Pulse 79 08/22/20 10:20 Resp 16 08/22/20 10:00 BP 123/58 L 08/22/20 10:20 Pulse Ox 97 08/22/20 10:20
[2020-08-22] MEDS: Ibuprofen 600 MG Tab PO PRN (21:34)
[2020-08-23] MEDS: Acetaminophen/oxyCODONE 325-5 MG Tab PO PRN ×3 (04:15→20:46)
--- NOTE | 2020-08-23 06:50 | PCM.PNPP ---
- General Info Date of Service: 08/23/20 Functional Status: Reports: Pain Controlled, Tolerating Diet, Ambulating, Urinating - Review of Systems General: Reports: No Symptoms Pulmonary: Reports: No Symptoms Cardiovascular: Reports: No Symptoms Gastrointestinal: Reports: Abdominal Pain (managed with medications ) Genitourinary: Reports: No Symptoms Musculoskeletal: Reports: No Symptoms Neurological: Reports: No Symptoms - Patient Data Vital Signs - Most Recent: Last Vital Signs Temp 36.4 C 08/23/20 03:30 Pulse 93 08/23/20 03:30 Resp 16 08/23/20 03:30 BP 148/75 H 08/23/20 03:30 Pulse Ox 96 08/23/20 03:30 Weight - Most Recent: 139.207 kg I&O - Last 24 Hours: Intake & Output 08/22/20 08/22/20 08/23/20 14:59 22:59 06:59 Intake Total 60 820 500 Output Total 820 800 Balance -760 20 500 Med Orders - Current: Current Medications Diphenhydramine HCl (Benadryl) 25 mg IVPUSH Q6H PRN PRN Reason: Pruritis Diphenhydramine HCl (Benadryl) 25 mg IVPUSH Q6H PRN PRN Reason: Itching or Nausea Docusate Sodium (Colace) 100 mg PO Q12H PRN PRN Reason: Constipation Ephedrine Sulfate (Ephedrine Sulfate) 5 mg IVPUSH SEECOMMENT PRN PRN Reason: Other Fentanyl (Sublimaze) 50 mcg IVPUSH Q5M PRN PRN Reason: Pain Ibuprofen (Motrin) 600 mg PO Q6H PRN PRN Reason: mild pain or fever Last Admin: 08/22/20 21:34 Dose: 600 mg Documented by: Oxycodone/Acetaminophen (Percocet 325-5 Mg) 1 tab PO Q4H PRN PRN Reason: Pain (moderate 4-6) Last Admin: 08/22/20 19:16 Dose: 1 tab Documented by: Oxycodone/Acetaminophen (Percocet 325-5 Mg) 2 tab PO Q4H PRN PRN Reason: Pain (severe 7-10) Last Admin: 08/23/20 04:15 Dose: 2 tab Documented by: Sodium Chloride (Saline Flush) 10 ml FLUSH ASDIRECTED PRN PRN Reason: Keep Vein Open Discontinued Medications Acetaminophen (Tylenol) 975 mg PO NOW STA Stop: 08/21/20 12:27 Last Admin: 08/21/20 12:57 Dose: 975 mg Documented by: Cefazolin Sodium (Ancef) Confirm Administered Dose 2 gm .ROUTE .STK-MED ONE Stop: 08/21/20 19:41 Cefazolin Sodium (Ancef) Confirm Administered Dose 1 gm .ROUTE .STK-MED ONE Stop: 08/21/20 20:20 Citric Acid/Sodium Citrate (Bicitra Solution) 30 ml PO ONETIME ONE Stop: 08/21/20 19:30 Last Admin: 08/21/20 19:48 Dose: 30 ml Documented by: Ephedrine Sulfate (Ephedrine Sulfate) Confirm Administered Dose 50 mg .ROUTE .STK-MED ONE Stop: 08/21/20 20:23 Lactated Ringer's (Ringers, Lactated) 1,000 mls @ 40 mls/hr IV ASDIRECTED MARCELA Last Admin: 08/22/20 06:00 Dose: 40 mls/hr Documented by: Oxytocin/Lactated Ringer's (Pitocin In Lr 10 Units/1,000 Ml) 10 unit in 1,000 mls @ 12 mls/hr IV TITRATE MARCELA; Protocol Last Titration: 08/21/20 19:42 Dose: 0 munits/min, 0 mls/hr Documented by: Oxytocin/Lactated Ringer's (Pitocin In Lr 10 Units/1,000 Ml) 10 unit in 1,000 mls @ 500 mls/hr IV .CONTINUOUS MARCELA Cefazolin Sodium/Dextrose 2 gm (/ Premix) 50 mls @ 100 mls/hr IV ONETIME ONE Stop: 08/21/20 19:58 Last Admin: 08/22/20 17:57 Dose: Not Given Documented by: Cefazolin Sodium/Dextrose 1 gm (/ Premix) 50 mls @ 100 mls/hr IV ONETIME ONE Stop: 08/21/20 19:58 Last Admin: 08/22/20 17:57 Dose: Not Given Documented by: Cefazolin Sodium/Dextrose (Ancef 2 Gm/50 Ml) Confirm Administered Dose 0 mls @ as directed .ROUTE .STK-MED ONE Stop: 08/21/20 19:29 Last Admin: 08/22/20 17:57 Dose: Not Given Documented by: Cefazolin Sodium/Dextrose (Ancef 1 Gm/50 Ml) Confirm Administered Dose 50 mls @ as directed .ROUTE .STK-MED ONE Stop: 08/21/20 19:29 Last Admin: 08/22/20 17:57 Dose: Not Given Documented by: Lactated Ringer's (Ringers, Lactated) Confirm Administered Dose 2,000 mls @ as directed .ROUTE .STK-MED ONE Stop: 08/21/20 19:41 Dextrose/Lactated Ringer's (Dextrose 5%-Lactated Ringers) 1,000 mls @ 125 mls/hr IV ASDIRECTED [facility] Stop: 08/22/20 07:01 Last Admin: 08/22/20 02:00 Dose: 125 mls/hr Documented by: Lactated Ringer's (Ringers, Lactated) 500 mls @ 999 mls/hr IV .BOLUS ONE Stop: 08/22/20 05:59 Last Admin: 08/22/20 05:45 Dose: 999 mls/hr Documented by: Ketorolac Tromethamine (Toradol) Confirm Administered Dose 30 mg .ROUTE .STK-MED ONE Stop: 08/21/20 19:41 Ketorolac Tromethamine (Toradol) 30 mg IVPUSH Q6H [facility] Stop: 08/22/20 15:01 Last Admin: 08/22/20 15:24 Dose: 30 mg Documented by: Metoclopramide HCl (Reglan) 10 mg IVPUSH ONETIME ONE Stop: 08/21/20 19:30 Last Admin: 08/21/20 19:45 Dose: 10 mg Documented by: Miscellaneous Medication (Phenylephrine 1 Mg/10 Ml-Ns) Confirm Administered Dose 1 mg .ROUTE .STK-MED ONE Stop: 08/21/20 21:05 Misoprostol (Cytotec) 25 mcg VAG Q4H PRN PRN Reason: cervical ripening Last Admin: 08/21/20 12:48 Dose: 25 mcg Documented by: Morphine Sulfate (Duramorph Pf) Confirm Administered Dose 10 mg .ROUTE .STK-MED ONE Stop: 08/21/20 19:41 Nalbuphine HCl (Nubain) 10 mg IVPUSH Q2H PRN PRN Reason: Pain Ondansetron HCl (Zofran) 4 mg IVPUSH Q4H PRN PRN Reason: Nausea/Vomiting Ondansetron HCl (Zofran) Confirm Administered Dose 4 mg .ROUTE .STK-MED ONE Stop: 08/21/20 19:41 Ondansetron HCl (Zofran) 4 mg IVPUSH ONETIME PRN PRN Reason: Nausea/Vomiting Stop: 08/22/20 05:00 Oxytocin (Pitocin) Confirm Administered Dose 20 unit .ROUTE .STK-MED ONE Stop: 08/21/20 19:41 Sodium Chloride (Saline Flush) 10 ml FLUSH ASDIRECTED PRN PRN Reason: Keep Vein Open - Interaction Disposition, : in Room with Family Interaction: Holding Infant Infant Feeding: Attempted ; Nursed Fair/Poor, Bottle Fed , Encouraged to Breastfeed Support Person: Mother - Recovery Exam Fundal Tone: Firm Fundal Level: At Umbilicus Fundal Placement: Midline Lochia Amount: Small Lochia Color: Rubra/Red Perineum Description: Intact, Minimal Bruising/Swelling Episiotomy/Laceration: None Bladder Status: Voiding Urinary Elimination: Voided - Exam General: Alert, Oriented, Cooperative GI/Abdominal Exam: Soft, Non-Tender Extremities: Normal Inspection Skin: Warm, Dry, Intact Wound/Incisions: Healing Well, No Drainage - Problem List & Annotations (1) Preeclampsia SNOMED Code(s): 425159345 Code(s): O14.90 - UNSPECIFIED PRE-ECLAMPSIA, UNSPECIFIED TRIMESTER Status: Acute Current Visit: Yes Qualifiers: Trimester: third trimester Qualified Code(s): O14.93 - Unspecified pre- eclampsia, third trimester (2) 38 weeks gestation of SNOMED Code(s): 03965002 Code(s): Z3A.38 - 38 WEEKS GESTATION OF Status: Acute Current Visit: Yes (3) BMI 45.0-49.9, adult SNOMED Code(s): 571305163, 444214741 Code(s): Z68.42 - BODY MASS INDEX [BMI] 45.0-49.9, ADULT Status: Acute Current Visit: Yes (4) Non-reassuring electronic monitoring tracing SNOMED Code(s): 242844666 Code(s): O36.8390 - MATERN CARE FOR ABNLT FETL HRT RATE OR RHYM, UNSP TRI, UNSP Status: Acute Current Visit: Yes (5) S/P primary low transverse SNOMED Code(s): 729891673, 01730949, 524501743, 298317760, 880763382 Code(s): Z98.891 - HISTORY OF UTERINE SCAR FROM PREVIOUS SURGERY Status: Acute Current Visit: Yes - Problem List Review Problem List Initiated/Reviewed/Updated: Yes - My Orders Last 24 Hours: My Active Orders 08/22/20 21:00 Ibuprofen [Motrin] 600 mg PO Q6H PRN - Assessment Assessment:: POD#2 - Plan Plan:: * Routine cares * Breast feeding * BP's normal to mid-mild range overnight. BP check within 1 week from delivery * Discharge home tomorrow
[2020-08-23] MEDS: Ibuprofen 600 MG Tab PO PRN ×2 (08:44→15:31)
[2020-08-24] MEDS: Ibuprofen 600 MG Tab PO PRN ×2 (00:24→08:34)
[2020-08-24] MEDS: Acetaminophen/oxyCODONE 325-5 MG Tab PO PRN (05:31)
--- NOTE | 2020-08-24 06:37 | PCM.PNPP ---
- General Info Date of Service: 08/24/20 Functional Status: Reports: Pain Controlled, Tolerating Diet, Ambulating, Urinating - Review of Systems General: Reports: No Symptoms HEENT: Reports: No Symptoms. Denies: Headaches, Visual Changes Cardiovascular: Reports: No Symptoms Gastrointestinal: Reports: No Symptoms Genitourinary: Reports: No Symptoms Musculoskeletal: Reports: No Symptoms - Patient Data Vital Signs - Most Recent: Last Vital Signs Temp 36.3 C 08/24/20 03:47 Pulse 97 08/24/20 03:48 Resp 18 08/24/20 03:47 BP 152/71 H 08/24/20 05:29 Pulse Ox 96 08/24/20 03:48 Weight - Most Recent: 139.207 kg I&O - Last 24 Hours: Intake & Output 08/23/20 08/23/20 08/24/20 14:59 22:59 06:59 Intake Total 120 Balance 120 Med Orders - Current: Current Medications Diphenhydramine HCl (Benadryl) 25 mg IVPUSH Q6H PRN PRN Reason: Pruritis Diphenhydramine HCl (Benadryl) 25 mg IVPUSH Q6H PRN PRN Reason: Itching or Nausea Docusate Sodium (Colace) 100 mg PO Q12H PRN PRN Reason: Constipation Last Admin: 08/24/20 00:24 Dose: 100 mg Documented by: Ephedrine Sulfate (Ephedrine Sulfate) 5 mg IVPUSH SEECOMMENT PRN PRN Reason: Other Fentanyl (Sublimaze) 50 mcg IVPUSH Q5M PRN PRN Reason: Pain Ibuprofen (Motrin) 600 mg PO Q6H PRN PRN Reason: mild pain or fever Last Admin: 08/24/20 00:24 Dose: 600 mg Documented by: Oxycodone/Acetaminophen (Percocet 325-5 Mg) 1 tab PO Q4H PRN PRN Reason: Pain (moderate 4-6) Last Admin: 08/24/20 05:31 Dose: 1 tab Documented by: Oxycodone/Acetaminophen (Percocet 325-5 Mg) 2 tab PO Q4H PRN PRN Reason: Pain (severe 7-10) Last Admin: 08/23/20 04:15 Dose: 2 tab Documented by: Sodium Chloride (Saline Flush) 10 ml FLUSH ASDIRECTED PRN PRN Reason: Keep Vein Open Discontinued Medications Acetaminophen (Tylenol) 975 mg PO NOW STA Stop: 08/21/20 12:27 Last Admin: 08/21/20 12:57 Dose: 975 mg Documented by: Cefazolin Sodium (Ancef) Confirm Administered Dose 2 gm .ROUTE .STK-MED ONE Stop: 08/21/20 19:41 Cefazolin Sodium (Ancef) Confirm Administered Dose 1 gm .ROUTE .[facility] ONE Stop: 08/21/20 20:20 Citric Acid/Sodium Citrate (Bicitra Solution) 30 ml PO ONETIME ONE Stop: 08/21/20 19:30 Last Admin: 08/21/20 19:48 Dose: 30 ml Documented by: Ephedrine Sulfate (Ephedrine Sulfate) Confirm Administered Dose 50 mg .ROUTE .[facility] ONE Stop: 08/21/20 20:23 Lactated Ringer's (Ringers, Lactated) 1,000 mls @ 40 mls/hr IV ASDIRECTED MARCELA Last Admin: 08/22/20 06:00 Dose: 40 mls/hr Documented by: Oxytocin/Lactated Ringer's (Pitocin In Lr 10 Units/1,000 Ml) 10 unit in 1,000 mls @ 12 mls/hr IV TITRATE MARCELA; Protocol Last Titration: 08/21/20 19:42 Dose: 0 munits/min, 0 mls/hr Documented by: Oxytocin/Lactated Ringer's (Pitocin In Lr 10 Units/1,000 Ml) 10 unit in 1,000 mls @ 500 mls/hr IV .CONTINUOUS MARCELA Cefazolin Sodium/Dextrose 2 gm (/ Premix) 50 mls @ 100 mls/hr IV ONETIME ONE Stop: 08/21/20 19:58 Last Admin: 08/22/20 17:57 Dose: Not Given Documented by: Cefazolin Sodium/Dextrose 1 gm (/ Premix) 50 mls @ 100 mls/hr IV ONETIME ONE Stop: 08/21/20 19:58 Last Admin: 08/22/20 17:57 Dose: Not Given Documented by: Cefazolin Sodium/Dextrose (Ancef 2 Gm/50 Ml) Confirm Administered Dose 0 mls @ as directed .ROUTE .ST-MED ONE Stop: 08/21/20 19:29 Last Admin: 08/22/20 17:57 Dose: Not Given Documented by: Cefazolin Sodium/Dextrose (Ancef 1 Gm/50 Ml) Confirm Administered Dose 50 mls @ as directed .ROUTE .STK-MED ONE Stop: 08/21/20 19:29 Last Admin: 08/22/20 17:57 Dose: Not Given Documented by: Lactated Ringer's (Ringers, Lactated) Confirm Administered Dose 2,000 mls @ as directed .ROUTE .STK-MED ONE Stop: 08/21/20 19:41 Dextrose/Lactated Ringer's (Dextrose 5%-Lactated Ringers) 1,000 mls @ 125 mls/hr IV ASDIRECTED [facility] Stop: 08/22/20 07:01 Last Admin: 08/22/20 02:00 Dose: 125 mls/hr Documented by: Lactated Ringer's (Ringers, Lactated) 500 mls @ 999 mls/hr IV .BOLUS ONE Stop: 08/22/20 05:59 Last Admin: 08/22/20 05:45 Dose: 999 mls/hr Documented by: Ketorolac Tromethamine (Toradol) Confirm Administered Dose 30 mg .ROUTE .STK-MED ONE Stop: 08/21/20 19:41 Ketorolac Tromethamine (Toradol) 30 mg IVPUSH Q6H [facility] Stop: 08/22/20 15:01 Last Admin: 08/22/20 15:24 Dose: 30 mg Documented by: Metoclopramide HCl (Reglan) 10 mg IVPUSH ONETIME ONE Stop: 08/21/20 19:30 Last Admin: 08/21/20 19:45 Dose: 10 mg Documented by: Miscellaneous Medication (Phenylephrine 1 Mg/10 Ml-Ns) Confirm Administered Dose 1 mg .ROUTE .STK-MED ONE Stop: 08/21/20 21:05 Misoprostol (Cytotec) 25 mcg VAG Q4H PRN PRN Reason: cervical ripening Last Admin: 08/21/20 12:48 Dose: 25 mcg Documented by: Morphine Sulfate (Duramorph Pf) Confirm Administered Dose 10 mg .ROUTE .STK-MED ONE Stop: 08/21/20 19:41 Nalbuphine HCl (Nubain) 10 mg IVPUSH Q2H PRN PRN Reason: Pain Ondansetron HCl (Zofran) 4 mg IVPUSH Q4H PRN PRN Reason: Nausea/Vomiting Ondansetron HCl (Zofran) Confirm Administered Dose 4 mg .ROUTE .STK-MED ONE Stop: 08/21/20 19:41 Ondansetron HCl (Zofran) 4 mg IVPUSH ONETIME PRN PRN Reason: Nausea/Vomiting Stop: 08/22/20 05:00 Oxytocin (Pitocin) Confirm Administered Dose 20 unit .ROUTE .STK-MED ONE Stop: 08/21/20 19:41 Sodium Chloride (Saline Flush) 10 ml FLUSH ASDIRECTED PRN PRN Reason: Keep Vein Open - Interaction Disposition, : in Room with Family Interaction: Holding Feeding: Attempted ; Nursed Fair/Poor, Bottle Fed , Encouraged to Breastfeed Support Person: Mother - Recovery Exam Fundal Tone: Firm Fundal Level: 1 Fingerbreadths Below Umbilicus Fundal Placement: Midline Lochia Amount: Scant Lochia Color: Rubra/Red Perineum Description: Intact, Minimal Bruising/Swelling Episiotomy/Laceration: None Bladder Status: Voiding Urinary Elimination: Voided - Exam General: Alert, Oriented, Cooperative Lungs: Clear to Auscultation, Normal Respiratory Effort Cardiovascular: Regular Rate, Regular Rhythm GI/Abdominal Exam: Soft, Non-Tender Extremities: Normal Inspection Skin: Warm, Dry, Intact Wound/Incisions: Healing Well, No Drainage - Problem List & Annotations (1) Preeclampsia SNOMED Code(s): 474862141 Code(s): O14.90 - UNSPECIFIED PRE-ECLAMPSIA, UNSPECIFIED TRIMESTER Status: Acute Qualifiers: Trimester: third trimester Qualified Code(s): O14.93 - Unspecified pre- eclampsia, third trimester (2) 38 weeks gestation of SNOMED Code(s): 59610202 Code(s): Z3A.38 - 38 WEEKS GESTATION OF Status: Acute (3) BMI 45.0-49.9, adult SNOMED Code(s): 121713714, 267006643 Code(s): Z68.42 - BODY MASS INDEX [BMI] 45.0-49.9, ADULT Status: Acute (4) Non-reassuring electronic monitoring tracing SNOMED Code(s): 439884812 Code(s): O36.8390 - MATERN CARE FOR ABNLT FETL HRT RATE OR RHYM, UNSP TRI, UNSP Status: Acute (5) S/P primary low transverse SNOMED Code(s): 290767811, 92770968, 771513594, 546149828, 373325207 Code(s): Z98.891 - HISTORY OF UTERINE SCAR FROM PREVIOUS SURGERY Status: Acute - Problem List Review Problem List Initiated/Reviewed/Updated: Yes - Assessment Assessment:: POD#3 - Plan Plan:: * Routine cares * Breast feeding * BP's consistently mild range overnight. Patient without symptoms or concerns. Will need BP check early next week. Reviewed signs/symptoms which should prompt evaluation sooner * Discharge home today
--- NOTE | 2020-08-24 06:39 | PCM.DCSUM1 ---
Discharge Summary - Discharge Data Discharge Date: 08/24/20 Discharge Disposition: Home, Self-Care 01 Condition: Good - Referral to Home Health Primary Care Physician: Barbie Ybarra NP - Discharge Diagnosis/Problem(s) (1) Preeclampsia SNOMED Code(s): 764147476 ICD Code: O14.90 - UNSPECIFIED PRE-ECLAMPSIA, UNSPECIFIED TRIMESTER Status: Acute Qualifiers: Trimester: third trimester Qualified Code(s): O14.93 - Unspecified pre- eclampsia, third trimester (2) 38 weeks gestation of SNOMED Code(s): 06146707 ICD Code: Z3A.38 - 38 WEEKS GESTATION OF Status: Acute (3) BMI 45.0-49.9, adult SNOMED Code(s): 080919118, 992588554 ICD Code: Z68.42 - BODY MASS INDEX [BMI] 45.0-49.9, ADULT Status: Acute (4) Non-reassuring electronic monitoring tracing SNOMED Code(s): 548015088 ICD Code: O36.8390 - MATERN CARE FOR ABNLT FETL HRT RATE OR RHYM, UNSP TRI, UNSP Status: Acute (5) S/P primary low transverse SNOMED Code(s): 721093761, 78854876, 728986677, 852723620, 191720315 ICD Code: Z98.891 - HISTORY OF UTERINE SCAR FROM PREVIOUS SURGERY Status: A cute - Patient Summary/Data Operative Procedure(s) Performed: Primary low transverse - vacuum assisted Complications: None Consults: None Recommended Follow-up Testing/Procedures: Follow up in 1 week for BP check and 3 weeks for check Hospital Course: 25 y/o at 38 0/7 wks presented [facility] findings of persistently upper mild range BP's. Labs done and showed patient with preeclampsia. Induction attempted, but patient with recurrent decelerations with induction. For this reason taken for PLTCS. See operative note. did well. Was discharged home on POD#3 - Patient Instructions Diet: Regular Diet as Tolerated Activity: No Lifting Over 10 Pounds Activity, Other: Pelvic rest for 6 weeks Showering/Bathing: May Shower, No Tub Bathing/Swimming Wound/Incision Care: Keep Operative Site/Wound Site Clean and Dry Notify Provider of: Fever, Increased Pain, Swelling and Redness, Drainage, Nausea and/or Vomiting - Discharge Plan *PRESCRIPTION DRUG MONITORING PROGRAM REVIEWED*: No *COPY OF PRESCRIPTION DRUG MONITORING REPORT IN PATIENT SHERI: No Prescriptions/Med Rec: Acetaminophen/oxyCODONE [Percocet 325-5 MG] 1 - 2 tab PO Q6H PRN #25 tablet PRN Reason: Pain (Severe 7-10) Home Medications: Home Meds Vits #93/Iron Fum/FA [ Formula Tablet] 1 tab PO DAILY 08/03/20 [History] Sertraline [Zoloft] 50 mg PO DAILY 08/03/20 [History] Acetaminophen/oxyCODONE [Percocet 325-5 MG] 1 - 2 tab PO Q6H PRN #25 tablet 08/24/20 [Rx] Ibuprofen [Motrin] 600 mg PO Q6H PRN tablet 08/24/20 [Rx] Patient Handouts: and Self-Care, [id number], Hypertension, Care After Delivery, Breast Pumping Tips, [id number] Referrals: Yareli Lutz MD [Physician] - (Week of 08/27-08/20 for RN only BP check 3 weeks for post op check) - Discharge Summary/Plan Comment DC Time >30 min.: No - Patient Data Vitals - Most Recent: Last Vital Signs Temp 36.3 C 08/24/20 03:47 Pulse 97 08/24/20 03:48 Resp 18 08/24/20 03:47 BP 152/71 H 08/24/20 05:29 Pulse Ox 96 08/24/20 03:48 Weight - Most Recent: 139.207 kg I&O - Last 24 hours: Intake & Output 08/23/20 08/23/20 08/24/20 14:59 22:59 06:59 Intake Total 120 Balance 120 Med Orders - Current: Current Medications Diphenhydramine HCl (Benadryl) 25 mg IVPUSH Q6H PRN PRN Reason: Pruritis Diphenhydramine HCl (Benadryl) 25 mg IVPUSH Q6H PRN PRN Reason: Itching or Nausea Docusate Sodium (Colace) 100 mg PO Q12H PRN PRN Reason: Constipation Last Admin: 08/24/20 00:24 Dose: 100 mg Documented by: Ephedrine Sulfate (Ephedrine Sulfate) 5 mg IVPUSH SEECOMMENT PRN PRN Reason: Other Fentanyl (Sublimaze) 50 mcg IVPUSH Q5M PRN PRN Reason: Pain Ibuprofen (Motrin) 600 mg PO Q6H PRN PRN Reason: mild pain or fever Last Admin: 08/24/20 00:24 Dose: 600 mg Documented by: Oxycodone/Acetaminophen (Percocet 325-5 Mg) 1 tab PO Q4H PRN PRN Reason: Pain (moderate 4-6) Last Admin: 08/24/20 05:31 Dose: 1 tab Documented by: Oxycodone/Acetaminophen (Percocet 325-5 Mg) 2 tab PO Q4H PRN PRN Reason: Pain (severe 7-10) Last Admin: 08/23/20 04:15 Dose: 2 tab Documented by: Sodium Chloride (Saline Flush) 10 ml FLUSH ASDIRECTED PRN PRN Reason: Keep Vein Open Discontinued Medications Acetaminophen (Tylenol) 975 mg PO NOW STA Stop: 08/21/20 12:27 Last Admin: 08/21/20 12:57 Dose: 975 mg Documented by: Cefazolin Sodium (Ancef) Confirm Administered Dose 2 gm .ROUTE .STK-MED ONE Stop: 08/21/20 19:41 Cefazolin Sodium (Ancef) Confirm Administered Dose 1 gm .ROUTE .STK-MED ONE Stop: 08/21/20 20:20 Citric Acid/Sodium Citrate (Bicitra Solution) 30 ml PO ONETIME ONE Stop: 08/21/20 19:30 Last Admin: 08/21/20 19:48 Dose: 30 ml Documented by: Ephedrine Sulfate (Ephedrine Sulfate) Confirm Administered Dose 50 mg .ROUTE .STK-MED ONE Stop: 08/21/20 20:23 Lactated Ringer's (Ringers, Lactated) 1,000 mls @ 40 mls/hr IV ASDIRECTED MARCELA Last Admin: 08/22/20 06:00 Dose: 40 mls/hr Documented by: Oxytocin/Lactated Ringer's (Pitocin In Lr 10 Units/1,000 Ml) 10 unit in 1,000 mls @ 12 mls/hr IV TITRATE MARCELA; Protocol Last Titration: 08/21/20 19:42 Dose: 0 munits/min, 0 mls/hr Documented by: Oxytocin/Lactated Ringer's (Pitocin In Lr 10 Units/1,000 Ml) 10 unit in 1,000 mls @ 500 mls/hr IV .CONTINUOUS [facility] Cefazolin Sodium/Dextrose 2 gm (/ Premix) 50 mls @ 100 mls/hr IV ONETIME ONE Stop: 08/21/20 19:58 Last Admin: 08/22/20 17:57 Dose: Not Given Documented by: Cefazolin Sodium/Dextrose 1 gm (/ Premix) 50 mls @ 100 mls/hr IV ONETIME ONE Stop: 08/21/20 19:58 Last Admin: 08/22/20 17:57 Dose: Not Given Documented by: Cefazolin Sodium/Dextrose (Ancef 2 Gm/50 Ml) Confirm Administered Dose 0 mls @ as directed .ROUTE .STK-MED ONE Stop: 08/21/20 19:29 Last Admin: 08/22/20 17:57 Dose: Not Given Documented by: Cefazolin Sodium/Dextrose (Ancef 1 Gm/50 Ml) Confirm Administered Dose 50 mls @ as directed .ROUTE .STK-MED ONE Stop: 08/21/20 19:29 Last Admin: 08/22/20 17:57 Dose: Not Given Documented by: Lactated Ringer's (Ringers, Lactated) Confirm Administered Dose 2,000 mls @ as directed .ROUTE .STK-MED ONE Stop: 08/21/20 19:41 Dextrose/Lactated Ringer's (Dextrose 5%-Lactated Ringers) 1,000 mls @ 125 mls/hr IV ASDIRECTED [facility] Stop: 08/22/20 07:01 Last Admin: 08/22/20 02:00 Dose: 125 mls/hr Documented by: Lactated Ringer's (Ringers, Lactated) 500 mls @ 999 mls/hr IV .BOLUS ONE Stop: 08/22/20 05:59 Last Admin: 08/22/20 05:45 Dose: 999 mls/hr Documented by: Ketorolac Tromethamine (Toradol) Confirm Administered Dose 30 mg .ROUTE .STK-MED ONE Stop: 08/21/20 19:41 Ketorolac Tromethamine (Toradol) 30 mg IVPUSH Q6H [facility] Stop: 08/22/20 15:01 Last Admin: 08/22/20 15:24 Dose: 30 mg Documented by: Metoclopramide HCl (Reglan) 10 mg IVPUSH ONETIME ONE Stop: 08/21/20 19:30 Last Admin: 08/21/20 19:45 Dose: 10 mg Documented by: Miscellaneous Medication (Phenylephrine 1 Mg/10 Ml-Ns) Confirm Administered Dose 1 mg .ROUTE .STK-MED ONE Stop: 08/21/20 21:05 Misoprostol (Cytotec) 25 mcg VAG Q4H PRN PRN Reason: cervical ripening Last Admin: 08/21/20 12:48 Dose: 25 mcg Documented by: Morphine Sulfate (Duramorph Pf) Confirm Administered Dose 10 mg .ROUTE .STK-MED ONE Stop: 08/21/20 19:41 Nalbuphine HCl (Nubain) 10 mg IVPUSH Q2H PRN PRN Reason: Pain Ondansetron HCl (Zofran) 4 mg IVPUSH Q4H PRN PRN Reason: Nausea/Vomiting Ondansetron HCl (Zofran) Confirm Administered Dose 4 mg .ROUTE .STK-MED ONE Stop: 08/21/20 19:41 Ondansetron HCl (Zofran) 4 mg IVPUSH ONETIME PRN PRN Reason: Nausea/Vomiting Stop: 08/22/20 05:00 Oxytocin (Pitocin) Confirm Administered Dose 20 unit .ROUTE .STK-MED ONE Stop: 08/21/20 19:41 Sodium Chloride (Saline Flush) 10 ml FLUSH ASDIRECTED PRN PRN Reason: Keep Vein Open
== END 2020-08-24 09:40 | disposition home or self-care (01) | DRG 788 ==
LOC: JD.OB 12:00 → JD.OBCHECK 12:00 → JD.OB 12:26 → JD.OBCHECK 12:26 → JD.OB 20:32 → OBSVTOIN 20:32
PROVIDERS: ADMIT Obstetrics & Gynecology; ATTEND Obstetrics & Gynecology
PROC: 10D00Z1 Extraction of Products of Conception, Low, Open Approach (ICD-10-PCS; principal; 2020-08-21)
PROC: 3E0P7VZ Introduction of Hormone into Female Reproductive, Via Natural or Artificial Opening (ICD-10-PCS; 2020-08-21)
DX: O14.93 Unspecified pre-eclampsia, third trimester (principal); Z37.0 Single live birth; O36.8330 Maternal care for abnormalities of the fetal heart rate or rhythm, third trimester, not applicable or unspecified; O76 Abnormality in fetal heart rate and rhythm complicating labor and delivery; O99.214 Obesity complicating childbirth; E66.9 Obesity, unspecified; Z88.0 Allergy status to penicillin; Z91.018 Allergy to other foods; Z79.82 Long term (current) use of aspirin; Z79.899 Other long term (current) drug therapy; Z3A.38 38 weeks gestation of pregnancy; Z88.6 Allergy status to analgesic agent
CPT/HCPCS: 01961; 36415; 59025; 59200; 59409; 80048; 82565; 82570; 84156; 84450; 84460; 85025; 85027; 86592; 86850; 86900; 86901; 94762; A9270-GY; J0690; J1885; J2270; J2370; J2405; J2590; J2765; J7120; J7121

== ENCOUNTER 2021-10-25 05:25 | Inpatient (IN) | payer BC, MEDICAID ==
[~2021-10-25 05:25] MED LIST: Oxytocin/Lactated Ringers 10 UNIT/1,000 ML BAG IV SCH
[2021-10-25] MEDS: Lactated Ringers 1,000 ML IV SCH ×2 (05:50→07:19)
[2021-10-25] MEDS ORDERED: Ondansetron 4 MG/2 ML SDV ONE (06:34)
[2021-10-25] MEDS ORDERED: Oxytocin 10 Units/1 ML SDV ONE (06:34)
[2021-10-25] MEDS ORDERED: ceFAZolin 1 GM Vial ONE ×2 (06:34→06:38)
[2021-10-25] MEDS ORDERED: Morphine PF 10 MG/10 ML SDV ONE (06:34)
[2021-10-25] MEDS ORDERED: Ketorolac 30 MG/ML SDV ONE (06:34)
[2021-10-25] MEDS ORDERED: Citric Acid/Sodium Citrate Solution 30 ML Cup PO ONE (06:45)
[2021-10-25] MEDS ORDERED: Metoclopramide 10 MG/2 ML SDV IVPUSH ONE (06:45)
[2021-10-25] MEDS ORDERED: Bupivacaine 0.5% 30 ML SDV ONE (07:00)
[2021-10-25] MEDS ORDERED: Carboprost Tromethamine 250 MCG/1 ML Amp ONE (07:21)
[2021-10-25] MEDS ORDERED: fentaNYL 100 MCG/2 ML SDV IVPUSH PRN (09:03)
[2021-10-25] MEDS ORDERED: Ondansetron 4 MG/2 ML SDV IVPUSH PRN (09:03)
[2021-10-25] MEDS ORDERED: diphenhydrAMINE 50 MG/ML SDV IVPUSH PRN ×2 (09:03→09:58)
[2021-10-25] MEDS ORDERED: Meperidine 50 MG/ML Vial IVPUSH PRN (09:03)
[2021-10-25] MEDS ORDERED: Naloxone 0.4 MG/ML SDV IVPUSH PRN (09:58)
[2021-10-25] MEDS ORDERED: Dextrose 5%-Lactated Ringers 1,000 ML IV SCH (09:58)
[2021-10-25] MEDS ORDERED: Acetaminophen/oxyCODONE 325-5 MG Tab PO PRN ×2 (09:58)
[2021-10-25] MEDS ORDERED: Docusate Sodium 100 MG Cap PO PRN (09:58)
[2021-10-25] MEDS ORDERED: ePHEDrine 50 MG/ML SDV IVPUSH PRN (09:58)
[2021-10-25] MEDS ORDERED: Ondansetron 4 MG/2 ML SDV IV PRN (09:58)
[2021-10-25] MEDS: Ketorolac 30 MG/ML SDV IVPUSH SCH ×2 (14:10→20:26)
[2021-10-26] MEDS: Ketorolac 30 MG/ML SDV IVPUSH SCH (02:55)
[2021-10-26] MEDS ORDERED: Ibuprofen 600 MG Tab PO PRN (08:30)
[2021-10-26] MEDS ORDERED: Sertraline 50 MG Tab PO SCH (09:00)
== END 2021-10-26 12:55 | disposition home or self-care (01) | DRG 540 ==
LOC: JD.OB 05:25
PROVIDERS: ADMIT Obstetrics & Gynecology; ATTEND Obstetrics & Gynecology
PROC: 10D00Z1 Extraction of Products of Conception, Low, Open Approach (ICD-10-PCS; principal; 2021-10-25)
DX: O14.04 Mild to moderate pre-eclampsia, complicating childbirth (principal); O34.211 Maternal care for low transverse scar from previous cesarean delivery; Z37.0 Single live birth; O99.214 Obesity complicating childbirth; E66.01 Morbid (severe) obesity due to excess calories; Z86.16 Personal history of COVID-19; O99.62 Diseases of the digestive system complicating childbirth; K21.9 Gastro-esophageal reflux disease without esophagitis; O99.344 Other mental disorders complicating childbirth; F41.9 Anxiety disorder, unspecified; F32.A Depression, unspecified; Z3A.37 37 weeks gestation of pregnancy
CPT/HCPCS: 01961; 36415; 59025; 82565; 82570; 84156; 84450; 84460; 85025; 85027; 86592; 86850; 86900; 86901; 94762; A9270-GY; J0690; J1885; J2274; J2370; J2405; J2590; J2765; J3490; J7120; J7121